=== PATIENT | female | born 1990 | race American Indian/Alaskan Native ===

== ENCOUNTER 2021-01-29 08:45 | Emergency (ER) | payer SELFPAY ==
[2021-01-29 09:02] VITALS: BP 125/77
--- NOTE | 2021-01-29 09:15 | Emergency Department Report ---
Chief Complaint: Extremity Injury, Upper Stated Complaint: PAIN IN HANDS AND ARMS Time Seen by Provider: 01/29/21 09:07 - HPI History of Present Illness: 30-year-old -Finnish female patient presents with complaints of intermittent tingling, numbness, and burning pain in her right hand/wrist radiating up her arm for the past month. Patient states symptoms are worse at night and while at work. She states she recently started a new job that requires a great deal of use of her right wrist and lifting of her right shoulder. She denies any swelling, injuries, or difficulty moving her right limb. She has not tried any OTC medications for symptoms. No other past medical history per patient. - Exam Vital Signs: Vital Signs 01/29/21 01/29/21 08:59 09:00 Temperature 98.1 F Pulse Rate 93 H 103 H Respiratory 20 Rate Blood Pressure 125/77 O2 Sat by Pulse 99 100 Oximetry MSE screening note: Focused history and physical exam performed. Due to findings the following was ordered: ED Medical Decision Making - Medical Decision Making Suspect carpal tunnel syndrome. Recommend OTC Velcro wrist splint and follow-up with orthopedics for further assessment. Also recommend OTC ibuprofen and Tylenol as needed for pain. Patient is well-appearing, her vitals are within normal limits, she is stable for discharge home. Strict return precautions were discussed in detail with patient who verbalizes understanding. ED Disposition for MSE Clinical Impression: Paresthesia of right arm Disposition: DC-01 TO HOME OR SELFCARE Is pt being admited?: No Condition: Stable Instructions: Paresthesia, Carpal Tunnel Syndrome Additional Instructions: Please try [id number] naproxen 500 mg twice a day as needed for your pain Please also purchase a wrist splint to immobilize your right wrist and wear it at night and while at work Referrals: [facility] [Provider Group] - 3-5 Days Forms: Work/School Release Form(ED) ED Physical Exam - General Limitations: No Limitations General appearance: alert, in no apparent distress - Head Head exam: Present: atraumatic, normocephalic - Eye Eye exam: Present: normal appearance - Respiratory Respiratory exam: Absent: respiratory distress - Cardiovascular Cardiovascular Exam: Present: regular rate - Expanded Upper Extremity Exam Right Shoulder Exam: Present: normal inspection, full ROM. Absent: tenderness Upper Arm exam: Present: normal inspection Elbow exam: Present: normal inspection Forearm Wrist exam: Present: full ROM, tenderness, other (+ Phalen's test). Absent: swelling, deformity Hand Wrist exam: Present: full ROM. Absent: tenderness ED Review of Systems ROS: Stated complaint: PAIN IN HANDS AND ARMS Other details as noted in HPI Constitutional: denies: chills, fever, malaise Musculoskeletal: arthralgia. denies: joint swelling Skin: denies: change in color Neurological: paresthesias
== END 2021-01-29 09:47 | disposition home or self-care (01) ==
LOC: ED 08:45
DX: R20.2 Paresthesia of skin (principal); R20.0 Anesthesia of skin; M25.531 Pain in right wrist
CPT/HCPCS: 99281

== ENCOUNTER 2021-02-28 06:55 | Emergency (ER) | payer OTHER ==
[2021-02-28 07:17] VITALS: BP 157/85
--- NOTE | 2021-02-28 08:24 | Emergency Department Report ---
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 Patient went seen exactly 1 month for the same complaint and will refer to a primary care provider as well as told to follow-up within orthopedic provider. Patient did not follow-up and comes to be reevaluated. Patient reports she has taken the naproxen. She is requesting a referral to orthopedic and a work note for limitations. Patient denies any injury. 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 ED Review of Systems ROS: Stated complaint: SHOULDER PAIN/CARPEL TUNNEL Other details as noted in HPI Comment: All other systems reviewed and negative ED Past Medical Hx - Past Medical History Previous Medical History?: No - Surgical History Past Surgical History?: No - Social History Smoking Status: Never Smoker Substance Use Type: None - Medications Home Medications: Home Medications Medication Instructions Recorded Confirmed Last Taken Type Diclofenac Sodium 50 mg PO Q8H PRN #15 tablet. 02/28/21 Unknown Rx Prednisone [predniSONE 5 mg (6-Day 5 mg PO .TAPER #1 tab.ds.geni 02/28/21 Unknown Rx Pack, 21 Tabs)] Upper Extremity Exam - Exam General: Vital signs noted. No distress. Alert and acting appropriately. Head and Torso: No HEENT Abnormality, No Neck Tenderness, No Chest/Lungs Abnormality, No Abdominal Tenderness, No Back Tenderness Shoulder Exam: Yes Normal Range of Motion in Shoulder, No Shoulder Tenderness, No Clavicle Tenderness, No Shoulder Deformity, No AC Joint Tenderness Arm Exam: No Arm/Humerus Tenderness, No Arm Deformity Elbow: No Elbow Tenderness, No Normal Range of Motion in Elbow, No Elbow Deformity Forearm: No Forearm Tenderness, No Forearm Deformity, No Pain with Pronation, No Pain with Supination Wrist: Yes Wrist Tenderness, Yes Normal ROM in Wrist (With pain), No Wrist Deformity, No Snuffbox Tenderness, No Pain with Axial Thumb Compression Hand: Yes Normal ROM in Digit(s), No Hand Tenderness, No Hand Deformity, No Digit Tenderness, No Digit(s) Deformity CMS Exam: Yes Normal Distal Pulses, Yes Normal Capillary Refill, Yes Normal Distal Sensation, No Broken Skin ED Course Vital Signs 02/28/21 07:16 Temperature 98.4 F Pulse Rate 95 H Respiratory 22 Rate Blood Pressure 157/85 O2 Sat by Pulse 95 Oximetry ED Medical Decision Making - Medical Decision Making 30-year-old -German female presents to the emergency room complaining of right hand pain that radiates up to her shoulder. Patient went seen exactly 1 month for the same complaint and will refer to a primary care provider as well as told to follow-up within orthopedic provider. Patient did not follow-up and comes to be reevaluated. Patient reports she has taken the naproxen. She is requesting a referral to orthopedic and a work note for limitations. Patient denies any injury. 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 We will give patient a prednisone pack, [address] Rodriguez and Jesús. We will check a blood sugar prior to discharge. Critical care attestation.: If time is entered above; I have spent that time in minutes in the direct care of this critically ill patient, excluding procedure time. ED Disposition Clinical Impression: Carpal tunnel syndrome on right Disposition: DC-01 TO HOME OR SELFCARE Is pt being admited?: No Does the pt Need Aspirin: No Condition: Stable Instructions: Preventing Carpal Tunnel Syndrome Additional Instructions: Please take medications as prescribed. Increase your fluid intake. Follow-up with orthopedic provider and purchase a wrist splint from [facility] [facility] any pharmacy and wear at night. Prescriptions: Diclofenac Sodium 50 mg PO Q8H PRN #15 tablet.dr MILLS Reason: Pain , Severe (7-10) Prednisone [predniSONE 5 mg (6-Day Pack, 21 Tabs)] 5 mg PO .TAPER #1 tab.ds.pk Referrals: KRISTIE RODRIGUEZ MD [Staff Physician] - 3-5 Days [facility] [Provider Group] - 3-5 Days Forms: Work/School Release Form(ED)
== END 2021-02-28 09:21 | disposition home or self-care (01) ==
LOC: ED 06:55
DX: G56.01 Carpal tunnel syndrome, right upper limb (principal); Z79.899 Other long term (current) drug therapy
CPT/HCPCS: 82962; 99282

== ENCOUNTER 2021-07-04 12:10 | Emergency (ER) | payer BC, OTHER ==
[2021-07-04 12:34] VITALS: BP 112/75
[2021-07-04] MEDS ORDERED: MORPHINE 4 MG/1 ML INJ IV ONE (12:49)
[2021-07-04] MEDS ORDERED: ONDANSETRON 4 MG/2 ML INJ IV ONE (12:49)
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
[2021-07-04 14:44] LABS: Basophils # (Auto) 0.2 K/mm3 (0.0-0.1); Basophils % (Auto) 2.7 % (0.0-1.8); Eosinophils # (Auto) 0.3 K/mm3 (0.0-0.4); Eosinophils % (Auto) 3.2 % (0.0-4.3); Hematocrit 37.8 % (30.3-42.9); Hemoglobin 11.8 gm/dl (10.1-14.3); Lymphocytes # (Auto) 2.4 K/mm3 (1.2-5.4); Lymphocytes % (Auto) 28.9 % (13.4-35.0); Mean Corpuscular HGB Conc 31 % (30-34); Mean Corpuscular Volume 74 fl (79-97); Monocytes # (Auto) 0.7 K/mm3 (0.0-0.8); Monocytes % (Auto) 8.6 % (0.0-7.3); Platelet Count 299 K/mm3 (140-440); Red Blood Count 5.09 M/mm3 (3.65-5.03)
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
[2021-07-04 14:53] LABS: Alanine Aminotransferase 40 units/L (7-56); Albumin 4.2 g/dL (3.9-5); Blood Urea Nitrogen 6 mg/dL (7-17); Calcium 8.8 mg/dL (8.4-10.2); Hemolysis Index 5
[2021-07-04 14:56] LABS: BUN/Creatinine Ratio 9
[2021-07-04] MEDS ORDERED: IBUPROFEN 800 MG TAB PO STA (15:33)
== END 2021-07-04 16:13 | disposition home or self-care (01) ==
LOC: ED 12:10
DX: S99.912A Unspecified injury of left ankle, initial encounter (principal); M54.2 Cervicalgia; R10.9 Unspecified abdominal pain; Z79.899 Other long term (current) drug therapy; V87.7XXA Person injured in collision between other specified motor vehicles (traffic), initial encounter; Y93.89 Activity, other specified; Y92.488 Other paved roadways as the place of occurrence of the external cause; Y99.8 Other external cause status
CPT/HCPCS: 36415; 72040; 73610; 74177; 80053; 83690; 84703; 85025; 96374; 96375; 99284; J2270; J2405; Q9967

== ENCOUNTER 2021-11-19 10:55 | Emergency (ER) | payer BC, OTHER ==
[2021-11-19] MEDS ORDERED: dexAMETHasone 4 MG/ML VIAL IM ONE (11:34)
--- NOTE | 2021-11-19 11:34 | Emergency Department Report ---
ED General Adult HPI - General Chief complaint: Back Pain/Injury Stated complaint: BACK PAIN PUI?: No Time Seen by Provider: 11/19/21 11:33 Source: patient Mode of arrival: Ambulatory Limitations: No Limitations - History of Present Illness Initial comments: Patient is a pleasant 31-year-old who comes to the emergency room for 2 complaints. 1. While playing ball yesterday patient twisted and is complaining of high lumbar back pain consistent with that of a pulled muscle. Pain is worse with movement. Is better with sitting still. Excedrin has not helped the pain. No signs and symptoms of cauda equina. No dysuria. No fever or chills. No abdominal pain. 2. Sinus congestion with no drainage. No fever or chills. Note that it is pollen season in [place]. No cough or congestion. - Related Data Previous Rx's Medication Instructions Recorded Last Taken Type Cetirizine HCl [ZyrTEC] 10 mg PO DAILY #30 capsule 11/19/21 Unknown Rx Cyclobenzaprine [Flexeril] 10 mg PO TID PRN #10 tablet 11/19/21 Unknown Rx Fluticasone [Flonase] 1 spray NS QDAY #1 bottle 11/19/21 Unknown Rx Ibuprofen [Motrin] 800 mg PO Q8HR PRN #30 tablet 11/19/21 Unknown Rx methylPREDNISolone [Medrol 4MG 4 mg PO FS #1 tab.ds.pk 11/19/21 Unknown Rx DOSEPAK (21 tabs)] Allergies Allergy/AdvReac Type Severity Reaction Status Date / Time No Known Allergies Allergy Verified 02/28/21 07:11 ED Review of Systems ROS: Stated complaint: BACK PAIN Other details as noted in HPI Comment: All other systems reviewed and negative ED Past Medical Hx - Past Medical History Previous Medical History?: No - Surgical History Past Surgical History?: No - Family History Family history: no significant - Social History Smoking Status: Never Smoker Substance Use Type: None - Medications Home Medications: Home Medications Medication Instructions Recorded Confirmed Last Taken Type Cetirizine HCl [ZyrTEC] 10 mg PO DAILY #30 capsule 11/19/21 Unknown Rx Cyclobenzaprine [Flexeril] 10 mg PO TID PRN #10 tablet 11/19/21 Unknown Rx Fluticasone [Flonase] 1 spray NS QDAY #1 bottle 11/19/21 Unknown Rx Ibuprofen [Motrin] 800 mg PO Q8HR PRN #30 tablet 11/19/21 Unknown Rx methylPREDNISolone [Medrol 4MG 4 mg PO FS #1 tab.ds.pk 11/19/21 Unknown Rx DOSEPAK (21 tabs)] ED Physical Exam - General Limitations: No Limitations General appearance: alert, in no apparent distress - Head Head exam: Present: atraumatic, normocephalic - Eye Eye exam: Present: normal appearance - ENT ENT exam: Present: mucous membranes moist, other (RED) - Neck Neck exam: Present: normal inspection - Respiratory Respiratory exam: Present: normal lung sounds bilaterally. Absent: respiratory distress - Cardiovascular Cardiovascular Exam: Present: regular rate, normal rhythm. Absent: systolic murmur, diastolic murmur, rubs, gallop - GI/Abdominal GI/Abdominal exam: Present: soft, normal bowel sounds - Extremities Exam Extremities exam: Present: normal inspection - Back Exam Back exam: Present: normal inspection - Neurological Exam Neurological exam: Present: alert, oriented X3 - Psychiatric Psychiatric exam: Present: normal affect, normal mood - Skin Skin exam: Present: warm, dry, intact, normal color. Absent: rash ED Course Vital Signs 11/19/21 11:03 Temperature 98.0 F Pulse Rate 96 H Respiratory 18 Rate Blood Pressure 133/65 O2 Sat by Pulse 100 Oximetry ED Medical Decision Making - Medical Decision Making Vital Signs 11/19/21 11:03 Temperature 98.0 F Pulse Rate 96 H Respiratory 18 Rate Blood Pressure 133/65 O2 Sat by Pulse 100 Oximetry Medicated with Decadron in the ER. Patient being discharged home with discharge plan of care including medications, diet, activity and follow-up. Patient verbalizes understanding of plan of care - Differential Diagnosis MUSCLE PULL/SINUSITIS/ALLERGIC RHINITSIS Critical care attestation.: If time is entered above; I have spent that time in minutes in the direct care of this critically ill patient, excluding procedure time. ED Disposition Clinical Impression: Pulled muscle Allergic rhinitis Qualifiers: Allergic rhinitis trigger: other Allergic rhinitis seasonality: seasonal Qualified Code(s): J30.89 - Other allergic rhinitis Disposition: HOME / SELF CARE / HOMELESS Is pt being admited?: No Does the pt Need Aspirin: No Condition: Stable Instructions: Allergic Rhinitis, Adult Additional Instructions: Medications as ordered today Stay well-hydrated with water Follow-up with PCP next week to ensure you are getting better Referral below Avoid pollen if you can Warm baths will help your back Prescriptions: Cyclobenzaprine [Flexeril] 10 mg PO TID PRN #10 tablet PRN Reason: Muscle Spasm Fluticasone [Flonase] 1 spray NS QDAY #1 bottle methylPREDNISolone [Medrol 4MG DOSEPAK (21 tabs)] 4 mg PO FS #1 tab.ds.pk Ibuprofen [Motrin] 800 mg PO Q8HR PRN #30 tablet PRN Reason: Pain, Moderate (4-6) Cetirizine HCl [ZyrTEC] 10 mg PO DAILY #30 capsule Referrals: FRANCIA MALIN MD [Staff Physician] - 3-5 Days Forms: Work/School Release Form(ED) Time of Disposition: 11:36
[2021-11-19 11:59] VITALS: BP 137/68
== END 2021-11-19 12:05 | disposition home or self-care (01) ==
LOC: ED 10:55
DX: S39.012A Strain of muscle, fascia and tendon of lower back, initial encounter (principal); J30.9 Allergic rhinitis, unspecified; X58.XXXA Exposure to other specified factors, initial encounter; Y93.89 Activity, other specified; Y92.89 Other specified places as the place of occurrence of the external cause; Y99.8 Other external cause status
CPT/HCPCS: 96372; 99282; J1100